=== PATIENT | male | born 1955 | race Caucasian/White ===

== ENCOUNTER 2020-06-20 17:10 | Outpatient (CLI) | payer BC ==
--- NOTE | 2020-06-20 18:40 | XRAY Report ---
PROCEDURE: Foot 3 View LT INDICATIONS: LEFT 3RD DIGIT PAIN TECHNIQUE: 3 views of the foot were acquired. COMPARISON: None FINDINGS: Bones: Acute appearing nondisplaced oblique fracture through third proximal phalangeal shaft is seen. Old healed fifth metatarsal shaft fracture is seen. No suspicious bony lesions. Soft tissues: No tibiotalar joint effusion. Achilles tendon appears normal. IMPRESSION: Acute appearing nondisplaced third proximal phalangeal shaft fracture. Old healed fifth metatarsal sh aft fracture. No dislocation. Reviewed by: Nael Agustin MD on 06/20/2020 5:39 PM JOSE DANIEL Approved by: Nael Agustin MD on 06/20/2020 5:39 PM AKTORST[facility] Station ID: [id number]
== END 2020-06-20 23:59 | disposition home or self-care (01) ==
LOC: DI.N 17:10
PROVIDERS: ATTEND Family Medicine
DX: S92.515A Nondisplaced fracture of proximal phalanx of left lesser toe(s), initial encounter for closed fracture (principal)